=== PATIENT | female | born 1940 | race Native Hawaiian/Other Pacific Islander ===

== ENCOUNTER 2017-02-01 11:05 | Outpatient (CLI) | payer OTHER ==
[~2017-02-01 11:05] MED LIST: BUSPIRONE5 MG PO; BYSTOLIC5 MG PO; CENESTIN1.25 MG OR; CRESTOR20 MG PO; DULO60CA2 PO; LISI20TA11 PO; MECLIZINE25 MG OR; MELATONIN5 M3 OR; METOPROL TAR25 MG PO; MOBIC7.5 M1 PO; MULTIVIT/MIN OR; PANT40TA PO; PLAVIX75 MG OR; PREVACID30 MG PO; TRAZ50TA36 PO; VESICARE10 MG OR
== END 2017-02-01 12:15 | disposition home or self-care (01) ==
LOC: MAMMO 11:05
DX: Z12.31 Encounter for screening mammogram for malignant neoplasm of breast (principal)
CPT/HCPCS: G0202-TC

== ENCOUNTER 2017-04-06 08:41 | Outpatient (CLI) | payer OTHER ==
[2017-04-06 09:04] LABS: PLATELET COUNT 250 K/uL (152-353)
[2017-04-06 09:25] LABS: POTASSIUM 4.2 mmol/L (3.6-5.2)
== END 2017-04-06 09:45 | disposition home or self-care (01) ==
LOC: LABW 08:41
PROVIDERS: Internal Medicine
DX: E03.8 Other specified hypothyroidism (principal)
CPT/HCPCS: 36415; 80053; 80061; 81000; 84439; 84443; 85027

== ENCOUNTER 2017-10-01 09:30 | Outpatient (CLI) | payer OTHER ==
[2017-10-01 09:58] LABS: PLATELET COUNT 215 K/uL (152-353)
[2017-10-01 10:57] LABS: POTASSIUM 4.1 mmol/L (3.6-5.2)
== END 2017-10-01 21:05 | disposition home or self-care (01) ==
LOC: LABW 09:30
PROVIDERS: Internal Medicine
DX: I25.10 Atherosclerotic heart disease of native coronary artery without angina pectoris (principal); Z13.820 Encounter for screening for osteoporosis; E03.8 Other specified hypothyroidism
CPT/HCPCS: 36415; 80053; 80061; 81000; 82306; 84439; 84443; 85027

== ENCOUNTER 2017-10-14 09:06 | Outpatient (CLI) | payer OTHER | END 2017-10-14 23:56 | disposition home or self-care (01) | LOC: RAD 09:06 | DX: Z13.820 Encounter for screening for osteoporosis (principal); Z78.0 Asymptomatic menopausal state ==

== ENCOUNTER 2018-02-28 11:43 | Outpatient (CLI) | payer OTHER | END 2018-02-28 20:24 | disposition home or self-care (01) | LOC: MAMMO 11:43 | DX: Z12.31 Encounter for screening mammogram for malignant neoplasm of breast (principal) ==

== ENCOUNTER 2018-04-04 12:08 | Outpatient (CLI) | payer OTHER ==
[2018-04-04 12:36] LABS: PLATELET COUNT 277 K/uL (152-353)
[2018-04-04 12:57] LABS: POTASSIUM 4.3 mmol/L (3.6-5.2)
== END 2018-04-04 21:15 | disposition home or self-care (01) ==
LOC: LABW 12:08
PROVIDERS: Internal Medicine
DX: I25.10 Atherosclerotic heart disease of native coronary artery without angina pectoris (principal); E03.9 Hypothyroidism, unspecified; Z13.820 Encounter for screening for osteoporosis; E55.9 Vitamin D deficiency, unspecified
CPT/HCPCS: 36415; 80053; 80061; 81000; 82306; 84439; 84443; 85027

== ENCOUNTER 2018-04-16 16:57 | Emergency (ER) | payer OTHER ==
[~2018-04-16] VITALS: Ht 167.6 cm; Wt 78.0 kg
[2018-04-16 17:42] VITALS: BP 119/66; TEMP 99
== END 2018-04-16 17:42 | disposition home or self-care (01) ==
LOC: ED 16:57
DX: T63.461A Toxic effect of venom of wasps, accidental (unintentional), initial encounter (principal); Y92.096 Garden or yard of other non-institutional residence as the place of occurrence of the external cause
CPT/HCPCS: 96372; 99282; J1020

== ENCOUNTER 2018-06-21 17:27 | Outpatient (CLI) | payer OTHER ==
[2018-06-21 17:48] LABS: PLATELET COUNT 231 K/uL (152-353)
== END 2018-06-21 21:17 | disposition home or self-care (01) ==
LOC: RAD 17:27
PROVIDERS: Student in an Organized Health Care Education/Training Program
DX: M79.671 Pain in right foot (principal)
CPT/HCPCS: 36415; 84550; 85027

== ENCOUNTER 2018-09-20 11:58 | Outpatient (CLI) | payer OTHER | END 2018-09-20 20:44 | disposition home or self-care (01) | LOC: RAD 11:58 | DX: M25.562 Pain in left knee (principal); M79.89 Other specified soft tissue disorders ==

== ENCOUNTER 2019-02-15 10:37 | Outpatient (CLI) | payer OTHER ==
[2019-02-15 11:14] LABS: PLATELET COUNT 269 K/uL (152-353)
== END 2019-02-15 23:28 | disposition home or self-care (01) ==
LOC: LABW 10:37
PROVIDERS: Internal Medicine
DX: I10 Essential (primary) hypertension (principal); D50.8 Other iron deficiency anemias; R82.998 Other abnormal findings in urine
CPT/HCPCS: 36415; 80053; 80061; 81000; 83540; 84439; 84443; 85027; 87086; 87088

== ENCOUNTER 2019-03-02 14:30 | Outpatient (CLI) | payer OTHER | END 2019-03-02 23:50 | disposition home or self-care (01) | LOC: MAMMO 14:30 | DX: Z12.31 Encounter for screening mammogram for malignant neoplasm of breast (principal) ==

== ENCOUNTER 2019-07-18 11:33 | Outpatient (CLI) | payer OTHER ==
[2019-07-18 12:11] LABS: PLATELET COUNT 246 K/uL (152-353)
[2019-07-18 13:12] LABS: POTASSIUM 4.2 mmol/L (3.6-5.2)
== END 2019-07-18 19:39 | disposition home or self-care (01) ==
LOC: LABW 11:33
PROVIDERS: Internal Medicine
DX: Z00.00 Encounter for general adult medical examination without abnormal findings (principal); E78.49 Other hyperlipidemia; F41.8 Other specified anxiety disorders; Z79.899 Other long term (current) drug therapy; Z13.820 Encounter for screening for osteoporosis; E55.9 Vitamin D deficiency, unspecified
CPT/HCPCS: 36415; 80053; 80061; 82306; 84439; 84443; 85027

== ENCOUNTER 2019-08-15 08:50 | Outpatient (CLI) | payer OTHER ==
[2019-08-15 10:07] LABS: PLATELET COUNT 273 K/uL (152-353)
== END 2019-08-15 19:04 | disposition home or self-care (01) ==
LOC: LABW 08:50
PROVIDERS: Internal Medicine
DX: K25.7 Chronic gastric ulcer without hemorrhage or perforation (principal)
CPT/HCPCS: 36415; 80053; 85027

== ENCOUNTER 2019-09-20 11:29 | Outpatient (CLI) | payer OTHER ==
[2019-09-20 11:48] LABS: PLATELET COUNT 233 K/uL (152-353)
== END 2019-09-20 20:24 | disposition home or self-care (01) ==
LOC: LABW 11:29
PROVIDERS: Internal Medicine Gastroenterology
DX: D64.89 Other specified anemias (principal)
CPT/HCPCS: 36415; 85027

== ENCOUNTER 2020-01-30 09:38 | Outpatient (CLI) | payer OTHER ==
[2020-01-30 10:05] LABS: PLATELET COUNT 214 K/uL (152-353)
[2020-01-30 10:22] LABS: POTASSIUM 3.8 mmol/L (3.6-5.2)
== END 2020-01-30 23:52 | disposition home or self-care (01) ==
LOC: LABW 09:38
PROVIDERS: Internal Medicine
DX: D64.89 Other specified anemias (principal); I10 Essential (primary) hypertension
CPT/HCPCS: 36415; 80053; 80061; 81000; 84439; 84443; 85027

== ENCOUNTER 2020-02-14 10:17 | Outpatient (CLI) | payer OTHER | END 2020-02-14 19:47 | disposition home or self-care (01) | LOC: RAD 10:17 | DX: Z13.820 Encounter for screening for osteoporosis (principal); N95.8 Other specified menopausal and perimenopausal disorders ==

== ENCOUNTER 2020-03-19 14:13 | Outpatient (CLI) | payer OTHER | END 2020-03-19 21:27 | disposition home or self-care (01) | LOC: MAMMO 14:13 | DX: Z12.31 Encounter for screening mammogram for malignant neoplasm of breast (principal) ==

== ENCOUNTER 2020-06-27 11:11 | Outpatient (CLI) | payer OTHER ==
[2020-06-27 12:14] LABS: POTASSIUM 3.7 mmol/L (3.6-5.2)
[2020-06-27 12:29] LABS: PLATELET COUNT 206 K/uL (152-353)
== END 2020-06-27 20:22 | disposition home or self-care (01) ==
LOC: LABW 11:11
PROVIDERS: Internal Medicine
DX: Z01.818 Encounter for other preprocedural examination (principal); E03.8 Other specified hypothyroidism; I10 Essential (primary) hypertension; R82.998 Other abnormal findings in urine
CPT/HCPCS: 36415; 80053; 81000; 84439; 84443; 85027; 87086; 87088; 87635; G2023; U0003

== ENCOUNTER 2021-01-15 16:08 | Outpatient (CLI) | payer OTHER | END 2021-01-15 20:34 | disposition home or self-care (01) | LOC: CT 16:08 | PROVIDERS: ATTEND Internal Medicine | DX: G44.85 Primary stabbing headache (principal) ==

== ENCOUNTER 2021-05-15 15:03 | Emergency (ER) | payer OTHER ==
[~2021-05-15] VITALS: Ht 167.6 cm; Wt 78.0 kg
[2021-05-15 16:34] LABS: PLATELET COUNT 234 K/uL (152-353)
[2021-05-15 16:37] LABS: POTASSIUM 3.8 mmol/L (3.6-5.2)
[2021-05-15 19:20] VITALS: BP 132/75; TEMP 97.6
== END 2021-05-15 19:20 | disposition home or self-care (01) ==
LOC: ED 15:03
PROVIDERS: Hospitalist
DX: S50.01XA Contusion of right elbow, initial encounter (principal); S70.02XA Contusion of left hip, initial encounter; S70.01XA Contusion of right hip, initial encounter; F03.90 Unspecified dementia, unspecified severity, without behavioral disturbance, psychotic disturbance, mood disturbance, and anxiety; W18.39XA Other fall on same level, initial encounter; Y92.098 Other place in other non-institutional residence as the place of occurrence of the external cause
CPT/HCPCS: 80048; 80307; 80320; 81000; 85027; 99283

== ENCOUNTER 2021-05-28 16:37 | Outpatient (CLI) | payer OTHER ==
[2021-05-28 17:18] LABS: PLATELET COUNT 325 K/uL (152-353)
[2021-05-28 17:45] LABS: POTASSIUM 4.8 mmol/L (3.6-5.2)
== END 2021-05-28 19:35 | disposition home or self-care (01) ==
LOC: LAB 16:37
PROVIDERS: ATTEND Internal Medicine
DX: R53.81 Other malaise (principal); Z79.899 Other long term (current) drug therapy
CPT/HCPCS: 80053; 80061; 84439; 84443; 85027

== ENCOUNTER 2021-06-09 10:59 | Outpatient (CLI) | payer OTHER | END 2021-06-09 20:06 | disposition home or self-care (01) | LOC: US 10:59 | PROVIDERS: ATTEND Internal Medicine | DX: M79.89 Other specified soft tissue disorders (principal); M17.12 Unilateral primary osteoarthritis, left knee ==

== ENCOUNTER 2021-08-31 11:09 | Emergency (ER) | payer OTHER ==
[~2021-08-31] VITALS: Ht 167.6 cm; Wt 71.2 kg
[2021-08-31 11:09] VITALS: TEMP 98.9
[2021-08-31 11:52] LABS: PLATELET COUNT 261 K/uL (152-353)
[2021-08-31 13:50] VITALS: BP 152/76
== END 2021-08-31 13:50 | disposition home or self-care (01) ==
LOC: ED 11:12
PROVIDERS: Emergency Medicine Emergency Medical Services
DX: S33.5XXA Sprain of ligaments of lumbar spine, initial encounter (principal); W01.0XXA Fall on same level from slipping, tripping and stumbling without subsequent striking against object, initial encounter; Y92.89 Other specified places as the place of occurrence of the external cause; Z98.890 Other specified postprocedural states
CPT/HCPCS: 80053; 81000; 82550; 85027; 96374; 96375; 99284; J1885

== ENCOUNTER 2021-09-01 15:03 | Outpatient (CLI) | payer OTHER | END 2021-09-01 19:57 | disposition home or self-care (01) | LOC: US 15:03 | PROVIDERS: ATTEND Internal Medicine | DX: M79.89 Other specified soft tissue disorders (principal) ==

== ENCOUNTER 2021-09-25 13:55 | Emergency (ER) | payer OTHER ==
[~2021-09-25] VITALS: Ht 167.6 cm; Wt 68.0 kg
[2021-09-25 14:00] VITALS: TEMP 97
[2021-09-25 14:24] LABS: PLATELET COUNT 226 K/uL (152-353)
[2021-09-25 14:31] LABS: POTASSIUM 4.5 mmol/L (3.6-5.2)
[2021-09-25 14:49] LABS: PARTIAL THROMBOPLASTIN TIME 21.4 SECONDS (24.5-33.6)
[2021-09-25 16:34] VITALS: BP 118/68
== END 2021-09-25 16:34 | disposition home or self-care (01) ==
LOC: ED 13:55
PROVIDERS: Emergency Medicine
DX: R53.1 Weakness (principal); I95.89 Other hypotension; W18.39XA Other fall on same level, initial encounter; Y92.091 Bathroom in other non-institutional residence as the place of occurrence of the external cause; Z79.899 Other long term (current) drug therapy; Z51.81 Encounter for therapeutic drug level monitoring
CPT/HCPCS: 80053; 83880; 84484; 85027; 85610; 85730; 93005; 96360; 99284

== ENCOUNTER 2021-12-13 18:50 | Emergency (ER) | payer OTHER ==
[~2021-12-13] VITALS: Ht 167.6 cm; Wt 73.5 kg
[2021-12-13 19:41] LABS: PLATELET COUNT 169 K/uL (152-353)
[2021-12-13 19:46] LABS: POTASSIUM 3.9 mmol/L (3.6-5.2)
[2021-12-13] MEDS ORDERED: BUSP5TAB2 PO (21:26)
[2021-12-13] MEDS ORDERED: NEBIVOLOL5 MG PO (21:27)
[2021-12-13] MEDS ORDERED: DULOXETINE HYDR60 MG PO (21:28)
[2021-12-13] MEDS ORDERED: PANTOPRAZOLE 40MG TA PO (21:28)
[2021-12-13] MEDS ORDERED: GRALISE300 MG (21:29)
[2021-12-13] MEDS ORDERED: SOLI10TAB PO (21:30)
[2021-12-13] MEDS ORDERED: VAZALORE81 MG PO (21:30)
[2021-12-13] MEDS ORDERED: CALCIUM PO (21:31)
[2021-12-13] MEDS ORDERED: CENTRUM SILVER1 TA1 PO (21:31)
[2021-12-13 22:05] VITALS: BP 135/77; TEMP 97.8
== END 2021-12-13 22:05 | disposition short-term general hospital (02) ==
LOC: ED 18:50
PROVIDERS: Emergency Medicine
DX: S02.32XA Fracture of orbital floor, left side, initial encounter for closed fracture (principal); W01.198A Fall on same level from slipping, tripping and stumbling with subsequent striking against other object, initial encounter; Y92.89 Other specified places as the place of occurrence of the external cause; Z11.52 Encounter for screening for COVID-19
CPT/HCPCS: 36415; 80048; 85027; 87635; 90471; 90715; 93005; 99285; U0003

== ENCOUNTER 2022-04-29 12:44 | Outpatient (CLI) | payer OTHER ==
[~2022-04-29 12:44] MED LIST changes: +BUSP5TAB2 PO; +CALCIUM PO; +CENTRUM SILVER1 TA1 PO; +DULOXETINE HYDR60 MG PO; +GRALISE300 MG; +NEBIVOLOL5 MG PO; +PANTOPRAZOLE 40MG TA PO; +SOLI10TAB PO; +VAZALORE81 MG PO
== END 2022-04-29 19:10 | disposition home or self-care (01) ==
LOC: RAD 12:44
PROVIDERS: ATTEND Nurse Practitioner
DX: Z01.818 Encounter for other preprocedural examination (principal)

== ENCOUNTER 2022-06-23 11:08 | Emergency (ER) | payer OTHER ==
[~2022-06-23] VITALS: Ht 167.6 cm; Wt 73.5 kg
[2022-06-23 11:10] VITALS: TEMP 97.9
[2022-06-23 14:00] VITALS: BP 115/68
== END 2022-06-23 14:32 | disposition home or self-care (01) ==
LOC: ED 11:08
DX: M54.59 Other low back pain (principal); E86.0 Dehydration; W18.39XA Other fall on same level, initial encounter; Y92.89 Other specified places as the place of occurrence of the external cause
CPT/HCPCS: 96360; 96372; 99284; J1885

== ENCOUNTER 2022-09-04 15:23 | Emergency (ER) | payer OTHER ==
[~2022-09-04] VITALS: Ht 167.6 cm; Wt 68.0 kg
[2022-09-04 15:34] VITALS: TEMP 99
[2022-09-04 16:14] LABS: PLATELET COUNT 195 K/uL (152-353)
[2022-09-04 16:21] LABS: POTASSIUM 3.9 mmol/L (3.6-5.2)
[2022-09-04 19:15] VITALS: BP 1456/83
== END 2022-09-04 19:15 | disposition home or self-care (01) ==
LOC: ED 15:23
PROVIDERS: Family Medicine
DX: S22.32XA Fracture of one rib, left side, initial encounter for closed fracture (principal); S20.212A Contusion of left front wall of thorax, initial encounter; S50.02XA Contusion of left elbow, initial encounter; K59.09 Other constipation; S50.312A Abrasion of left elbow, initial encounter; W01.190A Fall on same level from slipping, tripping and stumbling with subsequent striking against furniture, initial encounter; Y92.89 Other specified places as the place of occurrence of the external cause
CPT/HCPCS: 80053; 81002; 85027; 99283

== ENCOUNTER 2023-01-06 09:44 | Emergency (ER) | payer OTHER ==
[~2023-01-06] VITALS: Ht 167.6 cm; Wt 59.0 kg
[2023-01-06 10:07] VITALS: BP 147/52; TEMP 97
[2023-01-06 11:04] LABS: PLATELET COUNT 230 K/uL (152-353)
[2023-01-06 11:14] LABS: POTASSIUM 4.4 mmol/L (3.6-5.2)
== END 2023-01-06 13:18 | disposition home or self-care (01) ==
LOC: ED 09:44
PROVIDERS: Internal Medicine
DX: R19.7 Diarrhea, unspecified (principal)
CPT/HCPCS: 80053; 85027; 96365; 99284